=== PATIENT | male | born 1980 | race Caucasian/White ===

== ENCOUNTER 2025-04-25 14:42 | Emergency (ER) | payer MEDICARE, SELFPAY ==
[2025-04-25 14:43] VITALS: BP 155/98
--- NOTE | 2025-04-25 15:52 | ED.GENMED ---
History of Present Illness
General
Chief Complaint: Skin Surface Trauma
Source: patient
Time Seen by Provider: 04/25/25 15:22
History of Present Illness
History of Present Illness:
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
blade stating that the razor blade was new and likely the reason behind the laceration. Patient states he accidentally tripped causing the blade to go into his forearm. Tetanus is up-to-date, no other injury sustained.
Past History
Past History
ED Past Medical History: Psychiatric; Negative Asthma, HTN, Hypercholesterolemia or NIDDM
ED Past Surgical History: Orthopedic (L hip Replacement) and Tonsilectomy
Social History
Tobacco: Smoker (1 pack daily)
Alcohol: Occasional
Drug: Former user
Personal: Single
Living: with family
Review of Systems
Review of Systems
All Other Systems: ROS reviewed and negative except as documented in HPI and ROS
Phy Exam
Physical Exam
Physical Exam:
GENERAL: Alert , in no apparent distress
EYE: conjunctiva clear
Head: Normocephalic atraumatic
NECK: Supple,
ENT: mmm.
LUNGS: no acute respiratory distress
NEUROLOGICAL: Alert and oriented
SKIN: Warm and dry, volar left forearm has an approximate 2-1/2 cm superficial laceration, bleeding controlled with pressure.
MUSCULOSKELETAL: well perfused. Full range of motion of all digits and wrist. Sensation grossly intact light touch throughout. Radial pulse strong and intact bilaterally
PSYCH: Normal and appropriate interaction.
Scores
Heart Failure Risk
Heart Failure Risk Score: Not Applicable
Heart Score for Chest Pain Patients
STEMI patient?: Not applicable
Withdrawal Assessment of Alcohol
Withdrawal Assessment Completed?: Not applicable
Course
Vital Signs
Initial and Last Documented VS:
Initial Vital Signs
Temp Pulse Resp BP Pulse Ox
98.2 F 118 16 155/98 98
04/25/25 14:43 04/25/25 14:43 04/25/25 14:43 04/25/25 14:43 04/25/25 14:43
Last Documented Vital Signs
Temp Pulse Resp BP Pulse Ox
98.2 F 118 16 155/98 98
04/25/25 14:43 04/25/25 14:43 04/25/25 14:43 04/25/25 14:43 04/25/25 15:53
Procedures
Laceration Closure
Left Lower Volar Arm:
Status of Wound: clean
Size of Wound in cm: 2.5
Description of Wound Edges: sharp
Preparation: cleaned with saline
Anesthesia: 1% Lidocaine with epi
Revision/Debridement: routine- no revision
Type of Closure: single layer closure
Skin Closure Material: 5-0 nylon
Number of sutures: 9
MDM/Problems Addressed
Differential Diagnosis Includes:
- Simple laceration
- No concern for tendon or nerve involvement
-No concern for fracture
MDM/Problems Addressed:
44-year-old male presenting the ER for evaluation of a left volar forearm fracture occurred approximately 1 hour prior to arrival. Patient initially went to urgent care but was told to present to the ER and due to reported bleeding they contacted
an ambulance to bring him here. Bleeding is well-controlled with pressure and following removal of bandage there still remained no further bleeding. Laceration repaired as above without any difficulty. Suture removal 10 to 12 days. Patient
advised on wound care. Aware of return precautions to the ER.
*Pulse Oximetry
SaO2: 98
Oxygen Mode of Delivery: Room air
Patient hypoxic: no
*Critical Care Note
Total Time (30-74mins, 75-104mins- exclusive of procedures): Not Applicable
ED Attending Note
-
Portions of this chart may have been created with voice recognition software.� Occasional wrong word or��sound alike� substitutions may have occurred due to the inherent limitations of voice recognition software.
Discharge Plan
Departure
Patient Disposition: Home (Routine Discharge)
Date of Disposition: 04/25/25
Time of Disposition: 15:52
Patient with high blood pressure during this ER visit?: Yes
Discharge Problem:
Laceration of forearm, left
Instructions: Laceration Repair With Stitches (DC)
Prescriptions:
No Action
aspirin 325 MG tablet
325 mg PO DAILY
baclofen 20 MG tablet
20 mg PO TID
gabapentin [Neurontin] 800 MG tablet
800 mg PO TID
buprenorphine-naloxone [Suboxone] 1 EACH film
1 ea sublingual BID
doxycycline hyclate 100 MG capsule
100 mg PO Q12 Qty: 20 0RF
Referrals:
Willam Gary DO [Family Provider, Family Practice]
Activity Restrictions/Additional Instructions:
Suture removal in 10-12 days.
Interventions
Interventions:
*Risk Screen - Suicide Last Done: 04/25/25 14:43
*General Assessment Last Done: 04/25/25 14:43
*Neglect/Abuse Screening Last Done: 04/25/25 14:43
*Nursing Disposition Last Done: 04/25/25 15:58
ED-Skin Assessment Last Done: 04/25/25 15:47
Discharge Date and Time
Print Language: FIJIAN
== END 2025-04-25 15:59 | disposition home or self-care (01) ==
LOC: EMR 14:42
PROVIDERS: EMERGENCY PHYSICIAN Emergency Medicine; FAMILY PHYSICIAN Family Medicine
DX: S51.812A Laceration without foreign body of left forearm, initial encounter (principal); W27.8XXA Contact with other nonpowered hand tool, initial encounter; F17.200 Nicotine dependence, unspecified, uncomplicated
CPT/HCPCS: 12001; 99282